=== PATIENT | male | born 1990 | race American Indian/Alaskan Native ===

== ENCOUNTER 2019-04-30 18:07 | Emergency (ER) | payer MEDICAID ==
[2019-04-30 19:12] VITALS: BP 132/66
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
== END 2019-04-30 21:13 | disposition other institution (70) ==
LOC: JP.ED 18:07
DX: F10.10 Alcohol abuse, uncomplicated (principal); F19.90 Other psychoactive substance use, unspecified, uncomplicated; F99 Mental disorder, not otherwise specified; F17.210 Nicotine dependence, cigarettes, uncomplicated; Y90.0 Blood alcohol level of less than 20 mg/100 ml
CPT/HCPCS: 36415; 80305; 99285; G0480

== ENCOUNTER 2019-05-01 22:01 | Emergency (ER) | payer MEDICAID ==
[2019-05-01 22:24] VITALS: BP 125/77
--- NOTE | 2019-05-01 22:44 | EDM.PDOCBH ---
ED HPI GENERAL MEDICAL PROBLEM - General Chief Complaint: Behavioral/Psych Stated Complaint: EVAL Time Seen by Provider: 05/01/19 22:10 Source of Information: Reports: Patient History Limitations: Reports: No Limitations - History of Present Illness INITIAL COMMENTS - FREE TEXT/NARRATIVE: 28 yo presents from [facility] after he exposed himself to staff. 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 HE was seen in the ER last evening and voluntarily went to [facility]. Tonight he states that he is not suicidal or homicidal. He has no desire to hurt himself or others. He denies hallucinations and feels he is thinking clearly. He would like to call his sister and go to her house - Related Data Allergies Allergy/AdvReac Type Severity Reaction Status Date / Time No Known Allergies Allergy Verified 05/01/19 22:15 Home Meds: Home Meds NK [No Known Home Meds] 06/01/16 [History] Past Medical History Respiratory History: Reports: Other (See Below) Other Respiratory History: some wheezing per pt. but no diagnosis Musculoskeletal History: Reports: Fracture, Other (See Below) Other Musculoskeletal History: injury to left ankle, question if fractured. Did not go get it check. Psychiatric History: Reports: Anxiety, Depression - Past Surgical History Head Surgeries/Procedures: Reports: None Respiratory Surgical History: Reports: None Musculoskeletal Surgical History: Reports: None Dermatological Surgical History: Reports: None Social & Family History - Family History Family Medical History: Noncontributory - Tobacco Use Smoking Status *Q: Current Every Day Smoker Years of Tobacco use: 17 Packs/Tins Daily: 1 - Caffeine Use Caffeine Use: Reports: Coffee, Energy Drinks, Soda, Tea - Recreational Drug Use Recreational Drug Type: Reports: Marijuana/Hashish, Opium ED ROS GENERAL - Review of Systems Review Of Systems: See Below Constitutional: Denies: Fever, Chills Respiratory: Denies: Shortness of Breath, Wheezing Cardiovascular: Denies: Chest Pain, Blood Pressure Problem Psychiatric: Reports: Depression. Denies: Anxiety, Confusion, Hallucinations, Homicidal Ideation, Suicidal Ideation ED EXAM, BEHAVIORAL HEALTH - Physical Exam Exam: See Below Exam Limited By: No Limitations General Appearance: Alert, WD/WN, No Apparent Distress Respiratory/Chest: No Respiratory Distress Psychiatric: Alert, Depressed Mood. No: Agitated, [employer] Delusions, Suicidal Plan, Suicidal Thoughts, Auditory Hallucinations, Visual Hallucinations COURSE, BEHAVIORAL HEALTH COMP - Course Vital Signs: Last Vital Signs Temp 36.8 C 05/01/19 22:23 Pulse 74 05/01/19 22:23 Resp 14 05/01/19 22:23 BP 125/77 05/01/19 22:23 Pulse Ox 94 L 05/01/19 22:23 Departure - Departure Time of Disposition: 22:55 Disposition: Home, Self-Care 01 Condition: Good Clinical Impression: Depressive disorder - Discharge Information *PRESCRIPTION DRUG MONITORING PROGRAM REVIEWED*: Not Applicable *COPY OF PRESCRIPTION DRUG MONITORING REPORT IN PATIENT TIGIST: Not Applicable Instructions: Major Depressive Disorder, Adult, [id number] Referrals: PCP,None [Primary Care Provider] - Forms: ED Department Discharge Additional Instructions: follow-up with your mental health provider return to emergency room if you feel like you could harm yourself or others avoid use of alcohol or other mood altering substances
== END 2019-05-02 03:43 | disposition home or self-care (01) ==
LOC: JP.ED 22:01
DX: F32.9 Major depressive disorder, single episode, unspecified (principal); F17.210 Nicotine dependence, cigarettes, uncomplicated
CPT/HCPCS: 99284